=== PATIENT | female | born 1965 | race Caucasian/White ===

== ENCOUNTER → 2024-10-25 | Outpatient (CLI) | payer BC, SELFPAY ==
[2024-10-24 15:29] LABS: Basophils # (Auto) 0.1 Thou/mm3 (0.0-0.2); Basophils % (Auto) 1 % (0-2.5); Eosinophils # (Auto) 0.1 Thou/mm3 (0.0-0.5); Eosinophils % (Auto) 1 % (0-10); Hematocrit 42.5 % (36.0-46.0); Hemoglobin 14.1 g/dL (12.0-16.0); Lymphocytes # (Auto) 2.3 Thou/mm3 (1.0-4.8); Lymphocytes % (Auto) 27 % (10-50); Mean Corpuscular HGB Conc 33.2 g/dl (31.0-37.0); Mean Corpuscular Hemoglobin 29.8 pg (25.0-35.0); Mean Corpuscular Volume 90 fL (80-100); Monocytes # (Auto) 0.5 Thou/mm3 (0.0-0.8); Monocytes % (Auto) 6 % (0-12); Neutrophils # (Auto) 5.6 Thou/mm3 (1.8-7.7); Neutrophils % (Auto) 66 % (37-80); Platelet Count 218 Thou/mm3 (140-440); RDW Standard Deviation 41.5 fL (36.4-46.3); Red Blood Count 4.73 Miln/mm3 (4.00-5.20); White Blood Count 8.5 Thou/mm3 (3.6-11.0)
[2024-10-24 15:30] LABS: Immature Granulocytes % (Auto) 0 % (0-0); Immature Granulocytes Auto 0.02 Thou/mm3 (0.00-0.00); Nucleated Red Blood Cell % 0 /100 WBC (0)
[2024-10-24 15:49] LABS: Partial Thromboplastin Time 27.2 Seconds (22.0-36.0); Prothrombin Time 10.9 Seconds (9.0-12.2)
--- NOTE | 2024-10-25 08:30 | XR_ITS ---
Examination: Stereotactic guided vacuum assisted right breast biopsy with clip placement Specimen radiograph Date and time of exam:October 25, 2024 0943 hours INDICATIONS: Mammogram September 20, 2024 BI-RADS 4 suspicious microcalcifications upper outer right breast Timeout performed, documenting correct patient, order, referring physician, patient's site and reason for procedure, allergies to medications Informed consent provided. Time out performed Technique: The lesion right was localized with a stereotactic apparatus. Local anesthesia was obtained after prepping the skin at the entrance site and applying sterile drape Maximum sterile barrier technique. 8 core biopsies were then obtained, vacuum assisted, stereotactically guided, at the lesion site. Specimens appear adequate. Stereotactic breast marker was introduced at the lesion site Estimated blood loss 2 cc. Patient tolerated the procedure well and appeared in satisfactory and stable condition at completion of the procedure Pathology report to follow Impression: Successful stereotactic breast biopsy as described above. Specimen radiograph contains the biopsied suspicious microcalcifications.
== END | disposition home or self-care (01) ==
LOC: CDIM 08:01
PROVIDERS: Radiology Diagnostic Radiology; PCP Internal Medicine; Referring Provider Internal Medicine; Visit Provider Internal Medicine
DX: D24.1 Benign neoplasm of right breast (principal); R92.0 Mammographic microcalcification found on diagnostic imaging of breast; Z01.812 Encounter for preprocedural laboratory examination
CPT/HCPCS: 19081; 36415; 85025; 85610; 85730; A4648; A4649

== ENCOUNTER → 2025-03-20 | Outpatient (CLI) | payer BC, SELFPAY ==
--- NOTE | 2025-03-20 16:25 | XR_ITS ---
Examination: Shoulder,left, 3 views Technique: Shoulder AP internal rotation, AP external rotation, Y view shoulder, 3 views Exam date and time :March 20, 2025 1640 hours INDICATIONS: Onset left shoulder pain beginning one month ago. FINDINGS: Moderate osteopenia. Moderate narrowing glenohumeral joint. No shoulder fracture or dislocation. IMPRESSION: Moderate narrowing glenohumeral joint
== END | disposition home or self-care (01) ==
PROVIDERS: PCP Family Medicine; Referring Provider Registered Nurse; Visit Provider Registered Nurse
DX: M25.812 Other specified joint disorders, left shoulder (principal)
CPT/HCPCS: 73030

== ENCOUNTER 2025-05-30 15:30 | Outpatient (RCR) | payer BC, SELFPAY ==
--- NOTE | 2025-05-24 16:09 | PTNOTE_ITS ---
PT OP Initial Eval Patient Information Outpatient Physical Therapy Treatment Date: 05/24/25 Visit Reasons: LEFT SHOULDER PAIN Medical Diagnosis: M75.02; M25.512 Treatment Dx #1: Left Shoulder Pain Treatment Dx #2: Left Shoulder Mobility Deficits Start of Care: 05/24/25 Date of Onset: 4 months ago Smoking Status Smoking Status: Never smoker Initial Assessment Subjective: Pt is a 60 y/o female reports of left shoulder pain insidious onset ~ 4 months ago. Pt denies of trauma or injury. Pt's most recent MRI showed mild-moderate rotator cuff tendinosis, tear of the inferior glenohumeral ligament, and moderate subacromial subdeltoid bursitis. Pt has limitation with lifting, self care, cooking, cleaning, work duties, and performing recreational activities. Objective: Left Shoulder AROM Flexion: 90 deg Abduction: 90 deg External Rotation: 10 deg Internal Rotation: 20 deg Left Shoulder PROM Flexion: 90 deg Abduction: 100 deg External Rotation: 20 deg Internal Rotation: 25 deg Left Shoulder MMTs: grossly 3-/5 Left Scapula MMTs: grossly 3-/5 GHJ Accessory Motions: hypomobile inferior and posterior glide HBB AROM: Thumb at lateral waist line Assessment: Pt demonstrate left shoulder mobility and strength deficits consistent with adhesive capsulitis leading to difficulty with ADLs. Pt will benefit from physical therapy to increase ROM, strength, and work on stability. 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 1) Increase left shoulder AROM WFL in 6 wks to be able to perform overhead motions 2) Increase left shoulder MMTs grossly to 3+/5 in 6 wks to be able to perform lifting activities 3) Increase left scapula MMTs grossly to 3+/5 in 6 wks to be able to perform self care activities 4) Decrease shoulder pain to 2/10 in 6 wks to be able to perform work duties 5) Indep with HEP Treatment Plan 1) Manual Therapy 2) Therapeutic Activities 3) Therapeutic Exercises 4) Modalities (ice, heat) Frequency and Duration: 2 x wk for 6 wks Certification Dates: 05/24/25 to 08/24/25 Procedure Charges OP PT Eval Mod Complex 30 minutes: Yes
--- NOTE | 2025-05-28 16:05 | PT.ODAYNRPT ---
PT Outpatient Daily Note OP Daily Note Outpatient Physical Therapy Treatment Date: 05/28/25 Visit Reasons: LEFT SHOULDER PAIN Subjective: Pt's shoulder pain is about the same and still notice stiffness with arm movement. Objective: Please see flow chart for list of ther ex performed Assessment: difficulty with shoulder ER ROM exercise due to pain but able to complete instructed reps. Plan: Continue with PT Length of Time (minutes) of Treatment: 30 Minutes Procedure Charges Therapeutic Exercise 30 minutes: Yes
--- NOTE | 2025-05-30 16:06 | PT.ODAYNRPT ---
PT Outpatient Daily Note OP Daily Note Outpatient Physical Therapy Treatment Date: 05/30/25 Visit Reasons: LEFT SHOULDER PAIN Subjective: Pt's shoulder wasn't as sore she expected after last session. Pt still has pain on the top of the shoulder with overhead motions. Objective: Please see flow chart for list of ther ex perfomed Assessment: patient exhibit improvement with shoulder flexion and abduction AAROM during angus exercise with decrease upper trape recruitment. Pt decline manual stretches or therapy today and prefer intervention in the future sessions. Post ice helped with pain and soreness Plan: Continue with PT Length of Time (minutes) of Treatment: 30 Minutes Procedure Charges Therapeutic Exercise 30 minutes: Yes
--- NOTE | 2025-06-26 09:04 | PT.ODS1RPT ---
PT OP Progress/Discharge Note Date of Service: 06/26/25 Progress Note/DC Note Progress Note/Discharge Note: DC Note Patient Information Visit Reasons: LEFT SHOULDER PAIN Service Discharge Date: 06/26/25 Status Assessment: Pt has been seen for 3 visits (eval + 2 visits). Pt last treated on 05/30/25 and has not returned to therapy. Pt contact 06/25/25 regarding PT and will like to be d/c from care. Pt did not meet set goals in therapy; thank you for your referrals
== END 2025-06-06 23:59 | disposition home or self-care (01) ==
LOC: CPTX 15:30
PROVIDERS: PCP Orthopaedic Surgery; Referring Provider Orthopaedic Surgery; Visit Provider Orthopaedic Surgery
DX: M25.512 Pain in left shoulder (principal); M75.51 Bursitis of right shoulder
CPT/HCPCS: 97110; 97162

== ENCOUNTER → 2025-08-29 | Outpatient (CLI) | payer BC, SELFPAY | END | disposition home or self-care (01) | LOC: SLDO 14:49 | PROVIDERS: PCP Nurse Practitioner Family; Referring Provider Nurse Practitioner Family; Visit Provider Nurse Practitioner Family | DX: N30.00 Acute cystitis without hematuria (principal) | CPT/HCPCS: 87077; 87086; 87186 ==